=== PATIENT | female | born 1980 | race African-American/Black ===

== ENCOUNTER 2017-11-24 15:22 | Inpatient (IN) ==
[2017-11-24] MEDS ORDERED: ASPIRIN 325 MG TABLET PO STA (15:58)
[2017-11-24] MEDS ORDERED: METOPROLOL TARTRATE 5 MG/5 ML VIAL IV STA (15:58)
[2017-11-24] MEDS ORDERED: FUROSEMIDE 40 MG/4 ML VIAL IV STA (16:04)
[2017-11-24] MEDS ORDERED: ASPIRIN 325 MG TABLET ONE ×2 (16:05→17:11)
[2017-11-24] MEDS ORDERED: METOPROLOL TARTRATE 5 MG/5 ML VIAL IV ONE (16:05)
[2017-11-24] MEDS ORDERED: FUROSEMIDE 40 MG/4 ML VIAL ONE (16:13)
[2017-11-24 16:39] LABS: Apearance,Urine CLEAR (Clear); Bilirubin,Urine Negative (Negative); Blood, Urine Large mg/dL (Negative); Glucose,Urine (UA) Negative (Negative); Ketones,Urine Negative (Negative); Nitrite,Urine Negative (Negative); Protein,Urine 100 MG/DL; RBC,Urine 15 /HPF (0-4); Squamous Epithelial Cell,Urine Occasional /HPF (0-10); Urine Color Yellow (Yellow); Urine Specific Gravity 1.005 (1.001-1.035); WBC,Urine 10 /HPF (0-6)
[2017-11-24 16:44] LABS: INR 1.2; Partial Thromboplastin Time 24.6 SECS (0-40)
[2017-11-24 16:45] LABS: Barbiturates Screen,Urine Negative (Negative); Benzodiazepines Screen,Urine Negative (Negative); Cannabinoid Screen,Urine Negative (Negative); Opiate Screen,Urine Negative (Negative); Phencyclidine Screen,Urine Negative (Negative)
[2017-11-24 16:51] LABS: Basophils % 0.2 % (0.0-0.8); Eosinophils % 0.3 % (0.00-10.9); Hematocrit 37.6 VOL% (35.7-47.0); Hemoglobin 10.6 GM/DL (12.0-16.0); Immature Granulocytes % 1.7 %; Immature Granulocytes Absolute 0.23 #; Lymphocytes # 1.4 10*3/uL (1.4-4.0); Lymphocytes % 10.3 % (21.3-54.2); Mean Corpuscular HGB Conc 28.2 GM/DL (32-36); Mean Corpuscular Hemoglobin 18 PG (27-34); Mean Corpuscular Volume 65.3 FL (87-102); Mean Platelet Volume 10.3 FL (9.6-12.0); Monocytes # 1.2 10*3/uL (0.11-0.8); Monocytes % 8.6 % (1.7-12.7); NRBC # 0.04 10*3/uL; Neutrophils # 10.9 10*3/uL (1.4-7.4); Neutrophils % 78.9 % (38.7-73.9); Platelet Count 378 T/CUMM (130-400); Red Blood Count 5.76 MC/CUMM (3.8-5.5); Red Cell Distribution Width 22.8 % (9.3-17.3); White Blood Count 13.8 T/CUMM (4-12)
[2017-11-24 17:00] LABS: Lymphocytes 11 % (20-55); Segmented Neutrophils 79 % (50-85); Total Cells Counted 100
[2017-11-24 17:01] LABS: Hypochromasia 1+; Polychromasia Few; Target Cells Few
[2017-11-24 17:02] LABS: Platelet Estimate Adequate
[2017-11-24 17:03] LABS: Alanine Aminotransferase 156 U/L (13-56); Albumin 3.3 G/DL (3.4-5.0); Alkaline Phosphatase 169 U/L (45-117); Aspartate Amino Transferase 87 U/L (0-37); Blood Urea Nitrogen 14 MG/DL (7-18); Free T4 (Free Thyroxine) 1.36 NG/DL (0.76-1.46); Glucose 180 MG/DL (74-106); Osmolality,Calculated 278.8 MOS/KG (273-304); Potassium 3.3 MMOL/L (3.5-5.1); Sodium 137 MMOL/L (136-145); Total Protein 7.7 G/DL (6.4-8.3)
[2017-11-24] MEDS ORDERED: NITROGLYCERIN 2% OINT 1 INCH/GM PACK TOP ONE (17:11)
[2017-11-24] MEDS ORDERED: NITROGLYCERIN 2% OINT 1 INCH/GM PACK TOP STA (17:14)
[2017-11-24] MEDS ORDERED: hydrALAZINE 20 MG/1 ML VIAL IV STA (17:29)
[2017-11-24] MEDS ORDERED: hydrALAZINE 20 MG/1 ML VIAL ONE (17:31)
[2017-11-24] MEDS ORDERED: POTASSIUM BICARB EFFERVESCENT 25 MEQ TABLET PO ONE ×2 (17:31→18:10)
[2017-11-24] MEDS ORDERED: CIPROFLOXACIN 500 MG TABLET PO STA (17:31)
[2017-11-24] MEDS ORDERED: CIPROFLOXACIN 500 MG TABLET ONE (18:10)
[2017-11-24] MEDS ORDERED: DEXTROSE 50% 25 GM/50 ML VIAL IV PRN (18:14)
[2017-11-24] MEDS ORDERED: MAGNESIUM SULF RIDER 2 GM in PREMIX 1 EACH IV PRN (18:14)
[2017-11-24] MEDS ORDERED: GLUCAGON 1 MG VIAL IM PRN (18:14)
[2017-11-24] MEDS ORDERED: POTASSIUM CHLORIDE 20 MEQ TABLET PO PRN ×2 (18:14)
[2017-11-24] MEDS ORDERED: ONDANSETRON 4 MG/2 ML VIAL IV PRN (18:14)
[2017-11-24] MEDS ORDERED: MAGNESIUM SULF RIDER 4 GM in PREMIX 1 EACH IV PRN (18:14)
[2017-11-24] MEDS ORDERED: MORPHINE 4 MG/1 ML VIAL IV PRN (18:14)
[2017-11-24] MEDS ORDERED: hydrALAZINE 20 MG/1 ML VIAL IV PRN (18:18)
[2017-11-24 19:33] LABS: Hepatitis A Ab IgM Quant 0.18 Index; Hepatitis A Ab IgM Result Negative (Negative); Hepatitis B Core IgM Quant 0.19 Index; Hepatitis B Core IgM Result Negative (Negative); Hepatitis B Surface Ag Quant < 0.10 Index; Hepatitis B Surface Ag Result Negative (Negative); Hepatitis C Virus Ab Quant 0.17 Index; Hepatitis C Virus Ab Result Negative (Negative)
[2017-11-24] MEDS: SODIUM CHLORIDE 0.9% 1,000 ML IV SCH (21:53)
[2017-11-24] MEDS: CARVEDILOL 6.25 MG TABLET PO SCH (21:54)
[2017-11-24] MEDS: POTASSIUM CHLORIDE 20 MEQ TABLET PO SCH (21:54)
[2017-11-24] MEDS: CLORAZEPATE 7.5 MG TABLET PO SCH (21:54)
[2017-11-24] MEDS: INSULIN REGULAR 100 UNIT/ML SUBCUT SCH (21:55)
[2017-11-24] MEDS: LISINOPRIL 5 MG TABLET PO SCH (21:55)
[2017-11-24] MEDS: ENOXAPARIN 40 MG/0.4 ML SYRINGE SUBCUT SCH (22:34)
[2017-11-25] MEDS: NITROGLYCERIN 2% OINT 1 INCH/GM PACK TOP SCH ×3 (00:49→06:56)
[2017-11-25 01:15] LABS: Basophils % 0.2 % (0.0-0.8); Eosinophils % 0.1 % (0.00-10.9); Hematocrit 31.2 VOL% (35.7-47.0); Hemoglobin 9.2 GM/DL (12.0-16.0); Immature Granulocytes Absolute 0.11 #; Lymphocytes # 1.2 10*3/uL (1.4-4.0); Lymphocytes % 10.4 % (21.3-54.2); Mean Corpuscular HGB Conc 29.5 GM/DL (32-36); Mean Corpuscular Hemoglobin 19 PG (27-34); Mean Corpuscular Volume 62.7 FL (87-102); Mean Platelet Volume 9.9 FL (9.6-12.0); Monocytes # 1.2 10*3/uL (0.11-0.8); Monocytes % 10.5 % (1.7-12.7); NRBC # 0.05 10*3/uL; Neutrophils # 8.7 10*3/uL (1.4-7.4); Neutrophils % 77.8 % (38.7-73.9); Platelet Count 323 T/CUMM (130-400); Red Blood Count 4.98 MC/CUMM (3.8-5.5); Red Cell Distribution Width 22.3 % (9.3-17.3); White Blood Count 11.2 T/CUMM (4-12)
[2017-11-25 01:34] LABS: Albumin 2.9 G/DL (3.4-5.0); Bilirubin,Total 1.5 MG/DL (0.2-1.0); Calcium 8.5 MG/DL (8.5-10.1); Osmolality,Calculated 285.1 MOS/KG (273-304); Potassium 3.7 MMOL/L (3.5-5.1); Risk Ratio 3.08; Total Protein 6.2 G/DL (6.4-8.3); VLDL CHOLESTEROL 10.8 MG/DL
[2017-11-25] MEDS: DILTIAZEM INJ 100 MG in SODIUM CHLORIDE 0.9% 100 ML IV SCH ×3 (04:59→16:06)
[2017-11-25] MEDS: SODIUM CHLORIDE 0.9% 1,000 ML IV SCH ×2 (05:00→12:05)
[2017-11-25] MEDS: CLORAZEPATE 7.5 MG TABLET PO SCH ×3 (09:27→21:35)
[2017-11-25] MEDS: PANTOPRAZOLE 40 MG TABLET PO SCH (09:27)
[2017-11-25] MEDS: ASPIRIN EC 81 MG TABLET PO SCH (09:27)
[2017-11-25] MEDS: LISINOPRIL 5 MG TABLET PO SCH (09:27)
[2017-11-25] MEDS: hydroCHLOROthiazide 25 MG TABLET PO SCH (09:27)
[2017-11-25] MEDS: CARVEDILOL 6.25 MG TABLET PO SCH (09:27)
[2017-11-25] MEDS: POTASSIUM CHLORIDE 20 MEQ TABLET PO SCH ×2 (09:27→21:35)
[2017-11-25] MEDS: LEVOFLOXACIN 250 MG TABLET PO SCH (09:28)
[2017-11-25] MEDS: MULTIVITAMIN (BEROCCA) TABLET PO SCH (09:28)
[2017-11-25] MEDS: INSULIN REGULAR 100 UNIT/ML SUBCUT SCH ×4 (09:28→21:36)
[2017-11-25] MEDS: THIAMINE 200 MG/2 ML VIAL IV SCH (09:31)
[2017-11-25] MEDS ORDERED: CARVEDILOL 6.25 MG TABLET PO ONE (11:19)
[2017-11-25] MEDS ORDERED: hydrALAZINE 20 MG/1 ML VIAL IV PRN (11:21)
[2017-11-25] MEDS ORDERED: SODIUM CHLORIDE 0.45% 1,000 ML IV SCH (11:30)
[2017-11-25] MEDS: CARVEDILOL 12.5 MG TABLET PO SCH (16:39)
[2017-11-25] MEDS ORDERED: POTASSIUM CHLORIDE 20 MEQ TABLET PO ONE (17:28)
[2017-11-25] MEDS ORDERED: MAGNESIUM SULF RIDER 2 GM in PREMIX 1 EACH IV ONE (17:29)
[2017-11-25] MEDS: ENOXAPARIN 40 MG/0.4 ML SYRINGE SUBCUT SCH (21:35)
[2017-11-26] MEDS: DILTIAZEM INJ 100 MG in SODIUM CHLORIDE 0.9% 100 ML IV SCH ×2 (04:24→12:08)
[2017-11-26 06:10] LABS: Basophils % 0.1 % (0.0-0.8); Eosinophils # 0.1 10*3/uL (0.0-0.87); Eosinophils % 0.4 % (0.00-10.9); Hematocrit 30.7 VOL% (35.7-47.0); Hemoglobin 9.1 GM/DL (12.0-16.0); Immature Granulocytes % 0.6 %; Immature Granulocytes Absolute 0.08 #; Lymphocytes # 1.4 10*3/uL (1.4-4.0); Lymphocytes % 10.9 % (21.3-54.2); Mean Corpuscular HGB Conc 29.6 GM/DL (32-36); Mean Corpuscular Hemoglobin 19 PG (27-34); Mean Corpuscular Volume 64.2 FL (87-102); Mean Platelet Volume 10.4 FL (9.6-12.0); Monocytes # 1.2 10*3/uL (0.11-0.8); Monocytes % 8.8 % (1.7-12.7); NRBC # 0.07 10*3/uL; Neutrophils # 10.4 10*3/uL (1.4-7.4); Neutrophils % 79.2 % (38.7-73.9); Platelet Count 335 T/CUMM (130-400); Red Blood Count 4.78 MC/CUMM (3.8-5.5); Red Cell Distribution Width 22.5 % (9.3-17.3); White Blood Count 13.2 T/CUMM (4-12)
[2017-11-26 06:27] LABS: Osmolality,Calculated 277.7 MOS/KG (273-304); Potassium 4.7 MMOL/L (3.5-5.1)
[2017-11-26] MEDS: INSULIN REGULAR 100 UNIT/ML SUBCUT SCH ×4 (07:52→21:25)
[2017-11-26] MEDS: ASPIRIN EC 81 MG TABLET PO SCH (08:11)
[2017-11-26] MEDS: hydroCHLOROthiazide 25 MG TABLET PO SCH (08:11)
[2017-11-26] MEDS: CLORAZEPATE 7.5 MG TABLET PO SCH ×3 (08:11→21:25)
[2017-11-26] MEDS: LISINOPRIL 5 MG TABLET PO SCH (08:11)
[2017-11-26] MEDS: MULTIVITAMIN (BEROCCA) TABLET PO SCH (08:11)
[2017-11-26] MEDS: POTASSIUM CHLORIDE 20 MEQ TABLET PO SCH (08:11)
[2017-11-26] MEDS: CARVEDILOL 12.5 MG TABLET PO SCH (08:11)
[2017-11-26] MEDS: LEVOFLOXACIN 250 MG TABLET PO SCH (08:12)
[2017-11-26] MEDS: PANTOPRAZOLE 40 MG TABLET PO SCH (08:12)
[2017-11-26] MEDS: THIAMINE 200 MG/2 ML VIAL IV SCH (08:18)
[2017-11-26] MEDS ORDERED: DILTIAZEM 30 MG TABLET PO SCH (12:53)
[2017-11-26] MEDS ORDERED: THIAMINE 100 MG TABLET PO SCH (14:00)
[2017-11-26] MEDS: FOLIC ACID 1 MG TABLET PO SCH (14:22)
[2017-11-26] MEDS: CARVEDILOL 25 MG TABLET PO SCH (16:21)
[2017-11-26] MEDS: ENOXAPARIN 40 MG/0.4 ML SYRINGE SUBCUT SCH (21:27)
[2017-11-27 04:51] LABS: Basophils % 0.2 % (0.0-0.8); Eosinophils # 0.1 10*3/uL (0.0-0.87); Hematocrit 30.4 VOL% (35.7-47.0); Hemoglobin 8.9 GM/DL (12.0-16.0); Immature Granulocytes % 0.4 %; Immature Granulocytes Absolute 0.04 #; Lymphocytes # 1.7 10*3/uL (1.4-4.0); Lymphocytes % 16.6 % (21.3-54.2); Mean Corpuscular HGB Conc 29.3 GM/DL (32-36); Mean Corpuscular Hemoglobin 19 PG (27-34); Mean Corpuscular Volume 63.7 FL (87-102); Mean Platelet Volume 10.6 FL (9.6-12.0); Monocytes # 1.1 10*3/uL (0.11-0.8); Monocytes % 10.4 % (1.7-12.7); NRBC # 0.05 10*3/uL; Neutrophils # 7.3 10*3/uL (1.4-7.4); Neutrophils % 71.4 % (38.7-73.9); Platelet Count 338 T/CUMM (130-400); Red Blood Count 4.77 MC/CUMM (3.8-5.5); Red Cell Distribution Width 22.2 % (9.3-17.3); White Blood Count 10.2 T/CUMM (4-12)
[2017-11-27 05:19] LABS: Hypochromasia 2+; Microcytosis 2+; Polychromasia Slight; Target Cells Slight
[2017-11-27 05:20] LABS: Ovalocytes Slight; Platelet Estimate Normal; Tear Drop Cells Slight
[2017-11-27 05:21] LABS: Calcium 8.9 MG/DL (8.5-10.1); Osmolality,Calculated 280.7 MOS/KG (273-304); Potassium 4.5 MMOL/L (3.5-5.1)
[2017-11-27] MEDS: INSULIN REGULAR 100 UNIT/ML SUBCUT SCH ×4 (08:14→20:44)
[2017-11-27] MEDS ORDERED: ASPIRIN EC 325 MG TABLET PO SCH (09:00)
[2017-11-27] MEDS: POTASSIUM CHLORIDE 20 MEQ TABLET PO SCH (11:21)
[2017-11-27] MEDS: LISINOPRIL 5 MG TABLET PO SCH (11:21)
[2017-11-27] MEDS: MULTIVITAMIN (BEROCCA) TABLET PO SCH (11:21)
[2017-11-27] MEDS: LEVOFLOXACIN 250 MG TABLET PO SCH (11:21)
[2017-11-27] MEDS: PANTOPRAZOLE 40 MG TABLET PO SCH (11:21)
[2017-11-27] MEDS: ASPIRIN EC 81 MG TABLET PO SCH (11:21)
[2017-11-27] MEDS: CLORAZEPATE 7.5 MG TABLET PO SCH ×3 (11:21→20:43)
[2017-11-27] MEDS: CARVEDILOL 25 MG TABLET PO SCH (11:21)
[2017-11-27] MEDS: THIAMINE 100 MG TABLET PO SCH (11:22)
[2017-11-27] MEDS: FOLIC ACID 1 MG TABLET PO SCH (11:22)
[2017-11-27] MEDS: CARVEDILOL 12.5 MG TABLET PO SCH (16:58)
[2017-11-27] MEDS ORDERED: POTASSIUM CHLORIDE RIDER 10 MEQ in PREMIX 1 EACH IV PRN (19:12)
[2017-11-27] MEDS ORDERED: MAGNESIUM SULF RIDER 2 GM in PREMIX 1 EACH IV PRN (19:12)
[2017-11-27] MEDS: ENOXAPARIN 40 MG/0.4 ML SYRINGE SUBCUT SCH (20:43)
[2017-11-28] MEDS ORDERED: DIAZEPAM 5 MG TABLET PO ONE (06:00)
[2017-11-28] MEDS ORDERED: diphenhydrAMINE CAP 25 MG CAPSULE PO ONE (06:00)
[2017-11-28 06:12] LABS: % Iron Saturation 3.4 % (18-50); Calcium 9.2 MG/DL (8.5-10.1); Osmolality,Calculated 285.4 MOS/KG (273-304); Potassium 4.4 MMOL/L (3.5-5.1)
[2017-11-28 06:15] LABS: Basophils % 0.2 % (0.0-0.8); Eosinophils # 0.1 10*3/uL (0.0-0.87); Eosinophils % 1.2 % (0.00-10.9); Hematocrit 30.2 VOL% (35.7-47.0); Hemoglobin 8.8 GM/DL (12.0-16.0); Immature Granulocytes % 0.5 %; Immature Granulocytes Absolute 0.04 #; Lymphocytes # 1.5 10*3/uL (1.4-4.0); Lymphocytes % 17.2 % (21.3-54.2); Mean Corpuscular HGB Conc 29.1 GM/DL (32-36); Mean Corpuscular Hemoglobin 19 PG (27-34); Mean Corpuscular Volume 64.5 FL (87-102); Mean Platelet Volume 10.2 FL (9.6-12.0); Monocytes # 0.9 10*3/uL (0.11-0.8); Monocytes % 10.7 % (1.7-12.7); NRBC # 0.03 10*3/uL; Neutrophils # 6.1 10*3/uL (1.4-7.4); Neutrophils % 70.2 % (38.7-73.9); Platelet Count 296 T/CUMM (130-400); Red Blood Count 4.68 MC/CUMM (3.8-5.5); Red Cell Distribution Width 22.2 % (9.3-17.3); White Blood Count 8.6 T/CUMM (4-12)
[2017-11-28 06:18] LABS: Hypochromasia 1+; Polychromasia Slight
[2017-11-28 06:31] LABS: Folate 14.8 NG/ML (5.4-24.0)
[2017-11-28] MEDS: INSULIN REGULAR 100 UNIT/ML SUBCUT SCH ×4 (07:29→20:53)
[2017-11-28] MEDS: FOLIC ACID 1 MG TABLET PO SCH (10:31)
[2017-11-28] MEDS: MULTIVITAMIN (BEROCCA) TABLET PO SCH (10:31)
[2017-11-28] MEDS: PANTOPRAZOLE 40 MG TABLET PO SCH (10:32)
[2017-11-28] MEDS: POTASSIUM CHLORIDE 20 MEQ TABLET PO SCH (10:32)
[2017-11-28] MEDS: CLORAZEPATE 7.5 MG TABLET PO SCH ×3 (10:32→20:53)
[2017-11-28] MEDS: LEVOFLOXACIN 250 MG TABLET PO SCH (10:32)
[2017-11-28] MEDS: LISINOPRIL 5 MG TABLET PO SCH (10:32)
[2017-11-28] MEDS: ASPIRIN EC 81 MG TABLET PO SCH (10:32)
[2017-11-28] MEDS: THIAMINE 100 MG TABLET PO SCH (10:32)
[2017-11-28] MEDS: CARVEDILOL 12.5 MG TABLET PO SCH ×2 (10:32→16:45)
[2017-11-28] MEDS ORDERED: HEPARIN/NACL 0.9% 2 UNITS/ML 1,000 ML IV ONE (10:33)
[2017-11-28] MEDS ORDERED: MIDAZOLAM 2 MG/2 ML VIAL ONE ×3 (11:08→12:40)
[2017-11-28] MEDS ORDERED: fentaNYL 100 MCG/2 ML VIAL ONE (11:08)
[2017-11-28] MEDS ORDERED: VERAPAMIL 5 MG/2 ML VIAL ONE ×2 (11:19→12:40)
[2017-11-28] MEDS ORDERED: NITROGLYCERIN DRIP 50 MG/250 ML BOTTLE IV ONE ×2 (11:19→12:39)
[2017-11-28] MEDS ORDERED: HEPARIN 5,000 UNIT/1 ML VIAL ONE (11:40)
[2017-11-28] MEDS ORDERED: HYDROmorphone 2 MG/1 ML VIAL ONE (12:40)
[2017-11-28] MEDS ORDERED: ENOXAPARIN 30 MG/0.3 ML SYRINGE ONE (12:52)
[2017-11-28] MEDS ORDERED: ADENOSINE 90 MG/30 ML VIAL IV ONE (13:06)
[2017-11-28] MEDS ORDERED: BIVALIRUDIN 250 MG VIAL IV ONE (13:15)
[2017-11-28] MEDS ORDERED: TICAGRELOR 90 MG TABLET ONE (13:30)
[2017-11-28] MEDS: ACETAMINOPHEN 325 MG TABLET PO PRN (16:45)
[2017-11-28] MEDS: ENOXAPARIN 40 MG/0.4 ML SYRINGE SUBCUT SCH (20:53)
[2017-11-29] MEDS: ACETAMINOPHEN 325 MG TABLET PO PRN (03:15)
[2017-11-29 04:36] LABS: Basophils % 0.4 % (0.0-0.8); Eosinophils # 0.2 10*3/uL (0.0-0.87); Eosinophils % 1.9 % (0.00-10.9); Hematocrit 29.6 VOL% (35.7-47.0); Hemoglobin 8.6 GM/DL (12.0-16.0); Immature Granulocytes % 0.6 %; Immature Granulocytes Absolute 0.05 #; Lymphocytes # 1.5 10*3/uL (1.4-4.0); Lymphocytes % 18.3 % (21.3-54.2); Mean Corpuscular HGB Conc 29.1 GM/DL (32-36); Mean Corpuscular Hemoglobin 19 PG (27-34); Mean Corpuscular Volume 63.5 FL (87-102); Mean Platelet Volume 10.2 FL (9.6-12.0); Monocytes # 1.1 10*3/uL (0.11-0.8); Monocytes % 14.2 % (1.7-12.7); NRBC # 0.02 10*3/uL; Neutrophils # 5.1 10*3/uL (1.4-7.4); Neutrophils % 64.6 % (38.7-73.9); Platelet Count 292 T/CUMM (130-400); Red Blood Count 4.66 MC/CUMM (3.8-5.5); Red Cell Distribution Width 22.1 % (9.3-17.3); White Blood Count 7.9 T/CUMM (4-12)
[2017-11-29 05:00] LABS: Giant Platelets Few; Hypochromasia 1+; Ovalocytes Slight; Platelet Estimate Adequate
[2017-11-29 05:01] LABS: Calcium 8.4 MG/DL (8.5-10.1); Osmolality,Calculated 287.1 MOS/KG (273-304); Potassium 4.6 MMOL/L (3.5-5.1)
[2017-11-29 05:05] LABS: Albumin 2.8 G/DL (3.4-5.0); Bilirubin,Direct 0.47 MG/DL (0.0-0.20); Bilirubin,Indirect 0.6 MG/DL (0.0-1.0); Bilirubin,Total 1.1 MG/DL (0.2-1.0); Total Protein 6.1 G/DL (6.4-8.3)
[2017-11-29] MEDS: INSULIN REGULAR 100 UNIT/ML SUBCUT SCH ×2 (08:00→12:00)
[2017-11-29] MEDS: CLORAZEPATE 7.5 MG TABLET PO SCH (09:47)
[2017-11-29] MEDS: FOLIC ACID 1 MG TABLET PO SCH (09:47)
[2017-11-29] MEDS: THIAMINE 100 MG TABLET PO SCH (09:47)
[2017-11-29] MEDS: POTASSIUM CHLORIDE 20 MEQ TABLET PO SCH (09:47)
[2017-11-29] MEDS: LISINOPRIL 5 MG TABLET PO SCH (09:48)
[2017-11-29] MEDS: MULTIVITAMIN (BEROCCA) TABLET PO SCH (09:48)
[2017-11-29] MEDS: CARVEDILOL 12.5 MG TABLET PO SCH (09:48)
[2017-11-29] MEDS: PANTOPRAZOLE 40 MG TABLET PO SCH (09:48)
[2017-11-29] MEDS: LEVOFLOXACIN 250 MG TABLET PO SCH (09:48)
[2017-11-29] MEDS: ASPIRIN EC 81 MG TABLET PO SCH (09:48)
[2017-11-29 12:01] VITALS: BP 130/92
== END 2017-11-29 13:52 | disposition home or self-care (01) | DRG 191 ==
LOC: EDBD → EDUNIT# → N.EDINP 15:22 → N.ED 15:22 → N.TELES 19:17 → SUATTDRO 11-25 11:20
PROVIDERS: ADMIT Internal Medicine; ATTEND Internal Medicine
PROC: CLCCHCL (ICD-10-PCS; 2017-11-28 10:45)